=== PATIENT | female | born 1945 ===

== ENCOUNTER 2017-02-12 12:24 | Emergency (ER) | payer MEDICARE, SELFPAY ==
[2017-02-12 12:41] VITALS: BP 140/86; PULSE 67; RESP 18; TEMP 97; O2SAT 100
[2017-02-12] MEDS ORDERED: Sodium Chloride 0.9% 1,000 ML IV STA (12:56)
--- NOTE | 2017-02-12 13:15 | ED PDOC ---
HPI: General Adult Time Seen by Provider: 02/12/17 12:55 Chief Complaint (Nursing): Dizziness/Lightheaded Chief Complaint (Provider): Dizziness/Lightheaded History Per: Patient History/Exam Limitations: no limitations Onset/Duration Of Symptoms: Mins Current Symptoms Are (Timing): Still Present Additional Complaint(s): Katherine Pfeiffer is a 71 year old female with a history of hypertension that presents to the ED with a cheif complaint of dizziness and nausea that began immediately after patient visited her , who is an inpatient at [facility] on . She is concerned that her blood pressure is elevated, and denies any chest pain, shortness of breath, abdominal pain, headache, weakness, vomiting, or diarrhea. Past Medical History Reviewed: Historical Data, Nursing Documentation, Vital Signs Vital Signs: Last Vital Signs Temp 97 F L 02/12/17 12:39 Pulse 67 02/12/17 12:39 Resp 18 02/12/17 12:39 BP 140/86 02/12/17 12:39 Pulse Ox 100 02/12/17 13:18 - Medical History PMH: Asthma, Diverticulitis, HTN, Hypercholesterolemia, Osteoporosis - Surgical History Surgical History: Cholecystectomy Other surgeries: hysterectomy - Family History Family History: States: Unknown Family Hx - Home Medications Home Medications: Ambulatory Orders Medication Instructions Recorded Calcium Carbonate [Caltrate] 1 tab PO DAILY 02/12/17 Cetirizine HCl [All Day Allergy 5 mg PO HS 02/12/17 Relief] Cholecalciferol [Vitamin D 1000 IU] 1 tab PO DAILY 02/12/17 Famotidine [Pepcid] 20 mg PO HS 02/12/17 Omeprazole/Sodium Bicarbonate 1 cap PO DAILY 02/12/17 [Zegerid 20 mg Capsule] Ondansetron [Zofran] 4 mg PO Q6H PRN #10 tab 02/12/17 Pravastatin Sodium [Pravachol] 40 mg PO QPM 02/12/17 Pregabalin [Lyrica] 100 mg PO HS 02/12/17 Valsartan [Diovan] 160 mg PO DAILY 02/12/17 Vitamin B Complex [Super B-50 1 cap PO DAILY 02/12/17 Complex] - Allergies Allergies/Adverse Reactions: Allergies Allergy/AdvReac Type Severity Reaction Status Date / Time metoclopramide [From Reglan] Allergy VOMITING Verified 02/12/17 12:38 Penicillins Allergy RASH Verified 02/12/17 12:38 Review of Systems Cardiovascular: Negative for: Chest Pain Respiratory: Negative for: Shortness of Breath Gastrointestinal: Positive for: Nausea. Negative for: Vomiting, Abdominal Pain , Diarrhea Neurological: Positive for: Dizziness. Negative for: Weakness, Headache Physical Exam - Reviewed Nursing Documentation Reviewed: Yes Vital Signs Reviewed: Yes - Physical Exam Appears: Positive for: Non-toxic, No Acute Distress Head Exam: Positive for: ATRAUMATIC, NORMOCEPHALIC Skin: Positive for: Normal Color, Warm Eye Exam: Positive for: Normal appearance, EOMI, PERRL Neck: Positive for: Normal, Supple Cardiovascular/Chest: Positive for: Regular Rate, Rhythm. Negative for: Murmur Respiratory: Positive for: Normal Breath Sounds. Negative for: Wheezing Gastrointestinal/Abdominal: Positive for: Normal Exam, Soft. Negative for: Tenderness Back: Positive for: Normal Inspection. Negative for: L CVA Tenderness, R CVA Tenderness Extremity: Positive for: Normal ROM. 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 Negative for: Motor/Sensory Deficits, Aphasia, Facial Droop - Laboratory Results Result Diagrams: 02/12/17 17:45 02/12/17 14:13 - ECG O2 Sat by Pulse Oximetry: 100 (RA) Pulse Ox Interpretation: Normal Medical Decision Making Medical Decision Making: Impression: High blood pressure Plan: * EKG * CMP * CBC * Troponin I * Urinalysis * Zofran 4 mg IV * NaCl 1000 mLs at 200 mls/hr * Reevaluation Patient's blood pressure is only marginally elevated, but patient took her medication at 11 AM, will monitor BP. bloodwork reviewed and no clinically significant abnormalities Recd IVF and zofran w resolution of symptoms. On re-eval approx 3.5hrs into ED stay, denies abd pain, nausea, chest pain, SOB, headache or dizziness. Scribe Attestation: Documented by Rubi Rodriguez, acting as a scribe for Mehdi Weber III, DO. Provider Scribe Attestation: All medical record entries made by the Scribe were at my direction and personally dictated by me. I have reviewed the chart and agree that the record accurately reflects my personal performance of the history, physical exam, medical decision making, and the department course for this patient. I have also personally directed, reviewed, and agree with the discharge instructions and disposition Disposition - Clinical Impression Clinical Impression: Dizziness, Nausea - Patient ED Disposition Is Patient to be Admitted: No Counseled Patient/Family Regarding: Studies Performed, Diagnosis, Need For Followup, Rx Given - Disposition Referrals: [facility] [Outside] Disposition: Routine/Home Disposition Time: 17:45 Condition: STABLE Additional Instructions: Return to ER for any worse or new symptoms/ Prescriptions: Ondansetron [Zofran] 4 mg PO Q6H PRN #10 tab PRN Reason: Nausea/Vomiting Instructions: Dizziness (ED) Forms: [employer] (Danish)
[2017-02-12] MEDS: Sodium Chloride 0.45% 1,000 ML IV ONE (14:15)
[2017-02-12 14:56] LABS: ALB/GLOB RATIO 1.5 (1.0-2.1); ALKALINE PHOSPHATASE 73 U/L (38-126); ALT/SGPT 41 U/L (9-52); AST/SGOT 44 U/L (14-36); BLOOD UREA NITROGEN 28 mg/dl (7-17); CALCIUM 9.5 mg/dL (8.4-10.2); CARBON DIOXIDE 27 mmol/L (22-30); CHLORIDE 103 mmol/L (98-107); GFR AFRICAN-AMERICAN 59; GLUCOSE,RANDOM 88 mg/dL (65-105); SODIUM 137 mmol/l (132-148)
[2017-02-12 15:01] LABS: RBC URINE < 1 /hpf (0-3); URINE BACTERIA RARE (<OCC); URINE BILIRUBIN NEGATIVE (NEGATIVE); URINE BLOOD NEGATIVE (NEGATIVE); URINE COLOR YELLOW (YELLOW); URINE GLUCOSE (UA) NEG (Normal); URINE KETONE NEGATIVE (NEGATIVE); URINE LEUKOCYTE ESTERASE NEG Leu/uL (Negative); URINE PROTEIN NEGATIVE (NEGATIVE); URINE UROBILINOGEN 0.2-1.0 mg/dL (0.2-1.0); WBC URINE < 1 /hpf (0-5)
[2017-02-12 17:58] LABS: BASO % 0.5 % (0.0-2.0); EOS # 0.1 K/uL (0.0-0.7); EOS % 2.2 % (0.0-4.0); HEMATOCRIT 35.4 % (34.0-47.0); LYMPH # 1.4 K/uL (1.0-4.3); LYMPH % 25.7 % (20.0-40.0); MEAN CELL VOLUME 92.8 fl (81.0-99.0); MEAN CORPUSCULAR HEMOGLOBIN 30.6 pg (27.0-31.0); MEAN CORPUSCULAR HGB CONC 32.9 g/dL (33.0-37.0); MEAN PLATELET VOLUME 7.5 fl (7.2-11.7); MONO # 0.4 K/uL (0.0-0.8); MONO % 7.4 % (0.0-10.0); NEUT # 3.5 K/uL (1.8-7.0); NEUT % 64.2 % (50.0-75.0); NRBC % 0.1 % (0.0-0.0); RED CELL DISTRIBUTION WIDTH 13.2 % (11.5-14.5); WHITE BLOOD COUNT 5.4 K/uL (4.8-10.8)
--- NOTE | 2017-02-13 11:01 | CARD ---
APPROVED REPORT EKG Measurement Heart [id number] <Conclusion> Normal sinus rhythm Possible Left atrial enlargement Borderline ECG
== END 2017-02-12 19:07 | disposition home or self-care (01) ==
LOC: H.ER 12:24
DX: R42 Dizziness and giddiness (principal); R11.0 Nausea; I10 Essential (primary) hypertension; J45.909 Unspecified asthma, uncomplicated; Z88.0 Allergy status to penicillin; Z90.710 Acquired absence of both cervix and uterus
CPT/HCPCS: 80053; 81003; 84484; 85025; 93005; 96374; 99284; J2405; J7030

== ENCOUNTER 2017-07-09 13:40 | Emergency (ER) | payer MEDICARE, SELFPAY ==
[2017-07-09 13:44] VITALS: TEMP 97.5
[2017-07-09] MEDS ORDERED: Tdap Vaccine 0.5 ml Vial (10-64 yrs) IM ONE ×2 (14:09→14:13)
--- NOTE | 2017-07-09 14:11 | ED PDOC ---
HPI: Head Injury Time Seen by Provider: 07/09/17 13:57 Chief Complaint (Nursing): Trauma Chief Complaint (Provider): Head injury History Per: Patient History/Exam Limitations: no limitations Onset/Duration Of Symptoms: Days (today) Additional Complaint(s): Pt. accidentally slipped at the oil change. Shit her head on the left against the wall. Had LOC briefly. Also has pain on the left forearm and lower back. No numbness, tingles, weakness, dizziness, chest pain, dyspnea, incontinence, constipation. No abd pain. No vision changes. Ambulated after incident when she woke up. No leg pain. Past Medical History Vital Signs: Last Vital Signs Temp 97.5 F L 07/09/17 13:43 Pulse 86 07/09/17 13:43 Resp 16 07/09/17 13:43 BP 169/91 H 07/09/17 13:43 Pulse Ox 98 07/09/17 13:43 - Medical History PMH: Asthma, Diverticulitis, HTN, Hypercholesterolemia, Osteoporosis - Surgical History Surgical History: Cholecystectomy - Family History Family History: States: Unknown Family Hx - Living Arrangements Living Arrangements: With Family - Home Medications Home Medications: Ambulatory Orders Medication Instructions Recorded Calcium Carbonate [Caltrate] 1 tab PO DAILY 02/12/17 Cetirizine HCl [All Day Allergy 5 mg PO HS 02/12/17 Relief] Cholecalciferol [Vitamin D 1000 IU] 1 tab PO DAILY 02/12/17 Famotidine [Pepcid] 20 mg PO HS 02/12/17 Omeprazole/Sodium Bicarbonate 1 cap PO DAILY 02/12/17 [Zegerid 20 mg Capsule] Ondansetron [Zofran] 4 mg PO Q6H PRN #10 tab 02/12/17 Pravastatin Sodium [Pravachol] 40 mg PO QPM 02/12/17 Pregabalin [Lyrica] 100 mg PO HS 02/12/17 Valsartan [Diovan] 160 mg PO DAILY 02/12/17 Vitamin B Complex [Super B-50 1 cap PO DAILY 02/12/17 Complex] Famotidine [Pepcid] 20 mg PO DAILY PRN #6 tab 07/09/17 Ibuprofen [Motrin] 600 mg PO TID 7 Days tab 07/09/17 - Allergies Allergies/Adverse Reactions: Allergies Allergy/AdvReac Type Severity Reaction Status Date / Time acetaminophen [From Tylenol] Allergy RASH Verified 07/09/17 13:44 metoclopramide [From Reglan] Allergy VOMITING Verified 07/09/17 13:44 Penicillins Allergy RASH Verified 02/12/17 12:38 Review of Systems ROS Statement: Except As Marked, All Systems Reviewed And Found Negative Musculoskeletal: Positive for: Neck Pain, Arm Pain, Back Pain Neurological: Positive for: Headache Physical Exam - Reviewed Nursing Documentation Reviewed: Yes Vital Signs Reviewed: Yes - Physical Exam Appears: Positive for: Non-toxic, No Acute Distress Head Exam: Positive for: NORMOCEPHALIC. Negative for: ATRAUMATIC (left head toward posterior with hematoma and 1cm laceration. Bleeding stopped. Tender.) , NORMAL INSPECTION Skin: Positive for: Normal Color, Warm, DRY Eye Exam: Positive for: EOMI, Normal appearance, PERRL ENT: Positive for: Normal ENT Inspection Neck: Positive for: Normal, Painless ROM, Supple Cardiovascular/Chest: Positive for: Regular Rate, Rhythm Respiratory: Positive for: CNT, Normal Breath Sounds Gastrointestinal/Abdominal: Positive for: Normal Exam, Soft. Negative for: Tenderness Back: Positive for: Other (mild tender across lower). Negative for: L CVA Tenderness, R CVA Tenderness Extremity: Positive for: Normal ROM, Tenderness (L proximal lateral forearm with abrasion and another area with tender echymosis 3 inches away from abrasion.). 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 Negative for: Motor/Sensory Deficits, Aphasia, Facial Droop - ECG O2 Sat by Pulse Oximetry: 98 Procedures - Laceration/Wound Repair scalp Wound Length (cm): 1 Wound's Depth, Shape: superficial, linear Wound Explored: clean Irrigated w/ Saline (ccs): 100 Betadine Prep?: Yes Anesthesia: 1% Lidocaine Volume Anesthetic (ccs): 1 Wound Repaired With: Michelle Wound Complexity: Simple Sterile Dressing Applied?: Yes Progress: 4 michelle applied with no issues. Tolerated well. Disposition - Clinical Impression Clinical Impression: Head injuries, Forearm injury, Laceration - Patient ED Disposition Is Patient to be Admitted: No Counseled Patient/Family Regarding: Studies Performed, Diagnosis, Need For Followup - Disposition Referrals: [facility] [Outside] - 07/10/17 Disposition: Routine/Home Disposition Time: 16:00 Condition: STABLE Additional Instructions: Return if not better in 3 days. Prescriptions: Famotidine [Pepcid] 20 mg PO DAILY PRN #6 tab PRN Reason: Pain Ibuprofen [Motrin] 600 mg PO TID 7 Days tab Instructions: Closed Head Injury (DC), Laceration Repair With Byers (DC), Contusion (DC) Print Language: MONGOLIAN
--- NOTE | 2017-07-09 16:07 | CT ---
PROCEDURE: CT HEAD WITHOUT CONTRAST. HISTORY: pain COMPARISON: None available. TECHNIQUE: Axial computed tomography images were obtained through the head/brain without intravenous contrast. Radiation dose: Total exam DLP = 693.21 mGy-cm. This CT exam was performed using one or more of the following dose reduction techniques: Automated exposure control, adjustment of the mA and/or kV according to patient size, and/or use of iterative reconstruction technique. FINDINGS: HEMORRHAGE: No intracranial hemorrhage. BRAIN: Good corticomedullary differentiation is seen. Minimal but diffuse expansion of the ventriculosulcal and cisternal spaces is appreciated with minimal white matter lucency compatible with diffuse cerebral atrophy and chronic microangiopathy. No suspicious extra-axial fluid collection is identified and the midline brain anatomy appears grossly nonfocal as imaged. There is no mass effect throughout. VENTRICLES: Unremarkable. No hydrocephalus. CALVARIUM: No destructive bony lesion or displaced fracture identified including through the skullbase. However, a [id number] left parietal scalp hematoma is appreciated with emphysematous change suspicious for laceration. Clinically correlate further. PARANASAL SINUSES: Unremarkable as visualized. No significant inflammatory changes. MASTOID AIR CELLS: Unremarkable as visualized. No inflammatory changes. OTHER FINDINGS: None. IMPRESSION: Age related neuro degenerative findings are appreciated without posttraumatic sequelae intracranially or involving the calvarium directly. However, a [id number] left parietal scalp hematoma is appreciated with emphysematous change suspicious for laceration. Clinically correlate further.
--- NOTE | 2017-07-09 16:16 | CT ---
PROCEDURE: CT Cervical Spine without contrast HISTORY: neck pain COMPARISON: None available. TECHNIQUE: Axial computed tomography images were obtained of the cervical spine without the use of intravenous contrast. Coronal and sagittal reformatted images were created and reviewed. Radiation dose: Total exam DLP = 582.67 mGy-cm. This CT exam was performed using one or more of the following dose reduction techniques: Automated exposure control, adjustment of the mA and/or kV according to patient size, and/or use of iterative reconstruction technique. FINDINGS: VERTEBRAE: No fracture. Normal alignment. No destructive bony lesion. C1-2 articulation is degenerated with the craniocervical junction intact and unremarkable. DISCS/SPINAL CANAL/NEURAL FORAMINA: Mild multilevel cervical spondylosis affects the upper mid levels with diffuse facet arthropathy appreciate throughout the cervical spine. Discs heights are diminished at the mid cervical levels. No significant central canal stenosis appreciate although small disc osteophyte complex identified at C3-4 and C4-5 encroaching ventral nerve roots most likely. No significant neural foraminal stenosis throughout. PARASPINAL SOFT TISSUES: Unremarkable. OTHER FINDINGS: None. IMPRESSION: No acute fracture or spondylolisthesis identified. Limited multilevel degenerative spondylosis. No significant stenosis resulting nevertheless. Disc osteophyte complexes at C3-4 and C4-5 encroach ventral nerve roots most likely.
--- NOTE | 2017-07-09 16:26 | RAD ---
PROCEDURE: Radiographs of the Lumbar Spine. HISTORY: Back pain COMPARISON: No prior. FINDINGS: BONES: There is 4 mm degenerative retrolisthesis of L4 on L5. There is normal lumbar lordosis. There is diffuse bone demineralization. There is no acute fracture or spondylolysis. DISC SPACES: There is multilevel degenerative disc disease with anterior osteophytes, reduced disc heights and multilevel facet arthropathy, worse at L4-5. OTHER FINDINGS: There are no pathologic soft tissue calcifications. Both sacroiliac joints are normal. IMPRESSION: No acute fracture or spondylolysis. Multilevel degenerative disc disease, worse at L4-5.
--- NOTE | 2017-07-09 16:28 | RAD ---
PROCEDURE: Radiographs of the Left Forearm HISTORY: Pain COMPARISON: None available. TECHNIQUE: Frontal and lateral views obtained. FINDINGS: BONES: Bone alignment is normal. There is diffuse bone demineralization.No acute fracture or destructive lesion. JOINT SPACES: Unremarkable. OTHER FINDINGS: None. IMPRESSION: No acute fracture or dislocation.
[2017-07-09] MEDS ORDERED: Benzocaine/Butamben/Tetracai 14-2-2% TOP Spray TOP ONE (16:47)
[2017-07-09] MEDS ORDERED: BENZOCAINE SPR MM STA (16:47)
[2017-07-09] MEDS ORDERED: Lidocaine 1% Inj (20ml) IM ONE (16:49)
[2017-07-09] MEDS ORDERED: Lidocaine Hydrochloride 1% 10 ML ONE (16:51)
[2017-07-09 17:20] VITALS: BP 142/81; PULSE 91; RESP 18; O2SAT 99
== END 2017-07-09 17:50 | disposition home or self-care (01) ==
LOC: H.ER 13:40
DX: S00.03XA Contusion of scalp, initial encounter (principal); S01.01XA Laceration without foreign body of scalp, initial encounter; S99.921A Unspecified injury of right foot, initial encounter; S06.0X1A Concussion with loss of consciousness of 30 minutes or less, initial encounter; W19.XXXA Unspecified fall, initial encounter; Y92.89 Other specified places as the place of occurrence of the external cause; I10 Essential (primary) hypertension; E78.00 Pure hypercholesterolemia, unspecified; M51.36 Other intervertebral disc degeneration, lumbar region; M81.0 Age-related osteoporosis without current pathological fracture; Z88.0 Allergy status to penicillin; Z23 Encounter for immunization